=== PATIENT | male | born 1965 | race Caucasian/White ===

== ENCOUNTER 2019-06-07 06:32 | Inpatient (IN) | payer MEDICARE, MEDICAID ==
[~2019-06-07] VITALS: Ht 157.5 cm; Wt 66.7 kg
[~2019-06-07 06:32] MED LIST: ATOR10TA69 PO; FOLI-43 PO; HYDR200T35 PO; LOSA25TA26 PO; METH2.5T PO; PRED5TAB PO
[2019-06-07 07:22] LABS: EOSINOPHILS % 3.2 % (0.0-5.0); HEMATOCRIT. 39.7 % (42.0-52.0); HEMOGLOBIN. 12.9 g/dL (14.0-18.0); LYMPHOCYTES % 25.7 % (20.0-50.0); MEAN CORPUSCULAR HEMOGLOBIN 26.9 pg (28.0-32.0); MEAN CORPUSCULAR VOLUME 82.5 fL (80.0-94.0); MEAN PLATELET VOLUME 7.7 fl (7.4-10.4); MONOCYTES % 7.6 % (2.0-8.0); NEUTROPHILS % 62.5 % (40.0-76.0); PLATELET 448 x1000/uL (130-400); RED BLOOD CELL COUNT 4.81 mill/uL (4.7-6.1); RED CELL DISTRIBUTION WIDTH 15.8 % (11.6-14.6)
[2019-06-07] MEDS ORDERED: LACTATED RINGERS 1,000 ML IV SCH (07:30)
[2019-06-07 07:41] LABS: CLARITY URINE CLEAR (CLEAR); COLOR URINE YELLOW (YELLOW); KETONES URINE NEGATIVE (NEGATIVE); LEUKOCYTE ESTERASE URINE NEGATIVE (NEGATIVE); NITRITE URINE NEGATIVE (NEGATIVE); OCCULT BLOOD URINE NEGATIVE (NEGATIVE); PROTEIN URINE NEGATIVE (NEGATIVE); SPECIFIC GRAVITY URINE 1.017 (1.005-1.030); UROBILINOGEN URINE 0.2 E.U./dL (0.2-1.0)
[2019-06-07 07:46] LABS: PARTIAL THROMBOPLASTIN TIME 30.3 sec (23.4-31.0); PROTHROMBIN TIME 10.5 sec (9.6-11.0)
[2019-06-07 07:56] LABS: CHLORIDE 107 mEq/L (98-107)
[2019-06-07] MEDS ORDERED: IBUP-2030 PO (09:26)
[2019-06-07] MEDS ORDERED: ROPIVACAINE HCL 10MG/ML 20 ML VIAL EPI ONE (09:45)
[2019-06-07] MEDS ORDERED: BUPIVACAINE HCL/DEXTROSE/PF 0.75% 2ML AMP INJ ONE (09:45)
[2019-06-07] MEDS ORDERED: ALBUMIN HUMAN 12.5G/250ML (5%) IV ONE (09:46)
[2019-06-07] MEDS ORDERED: MORPHINE SULFATE/PF 1MG/ML 10ML AMP ONE (09:51)
[2019-06-07] MEDS ORDERED: SKIN ADHESIVE 0.7 GM EA TOP ONE (09:51)
[2019-06-07] MEDS ORDERED: BACITRACIN 50,000 UNITS/VIAL ONE ×2 (09:52→10:10)
[2019-06-07] MEDS ORDERED: BUPIVACAINE HCL/PF 0.25% (2.5MG/ML) 10ML ONE (09:55)
[2019-06-07] MEDS ORDERED: NEOSTIGMINE METHYLSULFATE 1MG/ML 10 ML VIAL ONE (09:57)
[2019-06-07] MEDS ORDERED: EPHEDRINE SULFATE 50MG/ML VIAL ONE (09:57)
[2019-06-07] MEDS ORDERED: EPINEPHRINE 1:1000 1 MG/ML AMP ONE ×2 (09:57→10:09)
[2019-06-07] MEDS ORDERED: ROCURONIUM BROMIDE 10MG/ML VIAL 5ML IV ONE ×4 (09:57→14:18)
[2019-06-07] MEDS ORDERED: GLYCOPYRROLATE 0.2 MG/ML 2ML VIAL ONE (09:57)
[2019-06-07] MEDS ORDERED: CEFAZOLIN SODIUM 1000MG/VIAL ONE (09:57)
[2019-06-07] MEDS ORDERED: MIDAZOLAM HCL 2 MG/2 ML VIAL ONE (09:57)
[2019-06-07] MEDS ORDERED: ONDANSETRON HCL 4MG/2ML INJ ONE (09:57)
[2019-06-07] MEDS ORDERED: FENTANYL CITRATE/PF 50MCG/ML 2ML VIAL ONE ×3 (09:57→16:09)
[2019-06-07] MEDS ORDERED: SODIUM CHLORIDE 0.9% 10ML VIAL ONE (09:57)
[2019-06-07] MEDS ORDERED: LIDOCAINE HCL/PF 1% 10 MG/ML 5ML VIAL ONE (09:57)
[2019-06-07] MEDS ORDERED: DEXAMETHASONE 4MG/ML 1ML VIAL ONE (09:57)
[2019-06-07] MEDS ORDERED: METOCLOPRAMIDE HCL 10MG/2ML VIAL ONE (09:57)
[2019-06-07] MEDS ORDERED: PHENYLEPHRINE HCL 10 MG/ML 1ML (IV VIAL) IV ONE (09:57)
[2019-06-07] MEDS ORDERED: SUCCINYLCHOLINE CHLORIDE 200MG/10ML IV ONE (09:57)
[2019-06-07] MEDS ORDERED: PROPOFOL 200MG/20ML VIAL IV ONE (09:57)
[2019-06-07] MEDS ORDERED: TRANEXAMIC ACID 1,000 MG in SODIUM CHLORIDE 0.9% 100 ML IV NR ×2 (10:00→11:00)
[2019-06-07] MEDS ORDERED: TRANEXAMIC ACID 1,000 MG/10 ML IV STA (10:00)
[2019-06-07] MEDS ORDERED: VANCOMYCIN HCL 1 GM/VIAL ONE (10:09)
[2019-06-07] MEDS ORDERED: GENTAMICIN SULF 40MG/ML 2ML VIAL ONE (10:09)
[2019-06-07] MEDS ORDERED: METHYLENE BLUE 50 MG/10 ML AMP IV ONE (10:10)
[2019-06-07] MEDS ORDERED: VANCOMYCIN HCL 500 MG/VIAL ONE (11:11)
[2019-06-07] MEDS ORDERED: VECURONIUM BROMIDE 10 MG/VIAL IV ONE (16:55)
[2019-06-07] MEDS ORDERED: HYDROMORPHONE HCL/PF 2MG/ML (OR) ONE (17:20)
[2019-06-07] MEDS ORDERED: LABETALOL 5MG/ML SYR 20 MG/4 ML SYRINGE IV PRN (19:00)
[2019-06-07] MEDS ORDERED: HYDROMORPHONE HCL/PF 2MG/ML CPJ IV PRN (19:00)
[2019-06-07] MEDS ORDERED: MEPERIDINE HCL/PF 25MG/ML CPJ IV PRN (19:00)
[2019-06-07] MEDS ORDERED: ONDANSETRON HCL 4MG/2ML INJ IV PRN ×2 (19:00→20:00)
[2019-06-07] MEDS ORDERED: NALOXONE HCL 0.4 MG/ML 1ML VIAL ONE (19:05)
[2019-06-07] MEDS ORDERED: ACETAMINOPHEN 325MG TABLET PO PRN (20:00)
[2019-06-07] MEDS ORDERED: HYDROCODONE/ACETAMINOPHEN 10/325MG TABLET PO PRN (20:00)
[2019-06-07] MEDS ORDERED: MAGNESIUM HYDROXIDE 400MG/5ML 30ML UDC PO PRN (20:00)
[2019-06-07] MEDS ORDERED: ZOLPIDEM TARTRATE 5MG TABLET PO PRN (20:00)
[2019-06-07] MEDS ORDERED: HYDROMORPHONE PCA 50 ML IV ONE (20:23)
[2019-06-07] MEDS ORDERED: ONDANSETRON INJ IV PRN (20:30)
[2019-06-07] MEDS ORDERED: HYDROMORPHONE PCA 10MG/50ML IV PRN (20:30)
[2019-06-07] MEDS ORDERED: DIPHENHYDRAMINE INJ IV PRN (20:30)
[2019-06-07] MEDS ORDERED: NALOXONE INJ IV PRN (20:30)
[2019-06-07 21:30] VITALS: BP 98/60
[2019-06-08] MEDS: CEFAZOLIN 2,000 MG in DEXT 5% WATER 100 ML IV SCH ×2 (01:14→08:21)
[2019-06-08 04:00] VITALS: BP 107/70
[2019-06-08 07:05] LABS: BASOPHILS % 0.4 % (0.0-2.0); EOSINOPHILS % 0.2 % (0.0-5.0); HEMATOCRIT. 25.3 % (42.0-52.0); HEMOGLOBIN. 8.4 g/dL (14.0-18.0); LYMPHOCYTES % 23.8 % (20.0-50.0); MEAN CORPUSCULAR HEMOGLOBIN 27.5 pg (28.0-32.0); MEAN PLATELET VOLUME 7.8 fl (7.4-10.4); MONOCYTES % 9.1 % (2.0-8.0); NEUTROPHILS % 66.5 % (40.0-76.0); PLATELET 317 x1000/uL (130-400); RED BLOOD CELL COUNT 3.05 mill/uL (4.7-6.1); RED CELL DISTRIBUTION WIDTH 15.5 % (11.6-14.6)
[2019-06-08 08:00] VITALS: BP 98/64
[2019-06-08 08:09] LABS: CHLORIDE 108 mEq/L (98-107)
[2019-06-08] MEDS: DOCUSATE SODIUM 100MG CAPSULE PO SCH ×2 (08:20→17:47)
[2019-06-08 12:00] VITALS: BP 112/69
[2019-06-08 16:00] VITALS: BP 111/62
[2019-06-08 20:00] VITALS: BP 140/82
[2019-06-08] MEDS: ENOXAPARIN 40MG/0.4ML SYR SUBCUT SCH (21:27)
[2019-06-09] VITALS: BP 122/79
[2019-06-09] MEDS: ACETAMINOPHEN 325MG TABLET PO PRN ×2 (00:24→05:02)
[2019-06-09 04:00] VITALS: BP 120/80
[2019-06-09 07:10] LABS: BASOPHILS % 0.2 % (0.0-2.0); EOSINOPHILS % 0.3 % (0.0-5.0); HEMATOCRIT. 25.6 % (42.0-52.0); HEMOGLOBIN. 8.4 g/dL (14.0-18.0); LYMPHOCYTES % 13.4 % (20.0-50.0); MEAN CORPUSCULAR HEMOGLOBIN 26.9 pg (28.0-32.0); MEAN CORPUSCULAR VOLUME 81.8 fL (80.0-94.0); MEAN PLATELET VOLUME 8.3 fl (7.4-10.4); MONOCYTES % 9.2 % (2.0-8.0); NEUTROPHILS % 76.9 % (40.0-76.0); PLATELET 297 x1000/uL (130-400); RED BLOOD CELL COUNT 3.13 mill/uL (4.7-6.1); RED CELL DISTRIBUTION WIDTH 15.3 % (11.6-14.6)
[2019-06-09 07:18] LABS: CHLORIDE 99 mEq/L (98-107)
[2019-06-09 07:42] LABS: TOTAL IRON BINDING CAPACITY 296 ug/dL (250-450)
[2019-06-09 08:00] VITALS: BP 118/79
[2019-06-09] MEDS: DOCUSATE SODIUM 100MG CAPSULE PO SCH ×2 (08:31→17:16)
[2019-06-09 12:00] VITALS: BP 104/65
[2019-06-09] MEDS: POTASSIUM CHLORIDE 10MEQ TABLET SR PO SCH ×2 (14:30→17:16)
[2019-06-09] MEDS: FERROUS SULFATE 325MG TABLET PO SCH ×2 (14:30→17:16)
[2019-06-09 16:00] VITALS: BP 110/71
[2019-06-09 20:00] VITALS: BP 127/68
[2019-06-09] MEDS: ASCORBIC ACID 500 MG TABLET PO SCH (21:19)
[2019-06-09] MEDS: ENOXAPARIN 40MG/0.4ML SYR SUBCUT SCH (21:20)
[2019-06-09] MEDS: HYDROCODONE/ACETAMINOPHEN 10/325MG TABLET PO PRN (21:25)
[2019-06-10] VITALS (7 sets, daily range): BP systolic 98–121; BP diastolic 55–72
[2019-06-10 07:05] LABS: CHLORIDE 106 mEq/L (98-107)
[2019-06-10 07:10] LABS: BASOPHILS % 0.2 % (0.0-2.0); EOSINOPHILS % 1.2 % (0.0-5.0); HEMATOCRIT. 25.7 % (42.0-52.0); HEMOGLOBIN. 8.5 g/dL (14.0-18.0); LYMPHOCYTES % 20.2 % (20.0-50.0); MEAN CORPUSCULAR HEMOGLOBIN 27.1 pg (28.0-32.0); MEAN CORPUSCULAR VOLUME 82.5 fL (80.0-94.0); MONOCYTES % 10.5 % (2.0-8.0); NEUTROPHILS % 67.9 % (40.0-76.0); PLATELET 302 x1000/uL (130-400); RED BLOOD CELL COUNT 3.12 mill/uL (4.7-6.1); RED CELL DISTRIBUTION WIDTH 15.1 % (11.6-14.6)
[2019-06-10] MEDS: FERROUS SULFATE 325MG TABLET PO SCH ×3 (08:27→17:42)
[2019-06-10] MEDS: POTASSIUM CHLORIDE 10MEQ TABLET SR PO SCH ×2 (08:27→17:43)
[2019-06-10] MEDS: ASCORBIC ACID 500 MG TABLET PO SCH ×2 (08:27→20:03)
[2019-06-10] MEDS: DOCUSATE SODIUM 100MG CAPSULE PO SCH ×2 (08:27→17:42)
[2019-06-10] MEDS: PREDNISONE 5MG TABLET PO SCH (15:33)
[2019-06-10] MEDS: HYDROXYCHLOROQUINE SULFATE 200MG TABLET PO SCH (17:42)
[2019-06-10] MEDS: DICLOFENAC SODIUM 75MG DR (EC) TABLET PO SCH (20:02)
[2019-06-10] MEDS: HYDROCODONE/ACETAMINOPHEN 10/325MG TABLET PO PRN (20:03)
[2019-06-10] MEDS: ENOXAPARIN 40MG/0.4ML SYR SUBCUT SCH (20:03)
[2019-06-10] MEDS ORDERED: ATORVASTATIN CALCIUM 10MG TABLET PO SCH (21:00)
[2019-06-11] VITALS (8 sets, daily range): BP systolic 94–108; BP diastolic 57–67
[2019-06-11 05:32] LABS: CLARITY URINE CLEAR (CLEAR); COLOR URINE YELLOW (YELLOW); KETONES URINE NEGATIVE (NEGATIVE); LEUKOCYTE ESTERASE URINE NEGATIVE (NEGATIVE); NITRITE URINE NEGATIVE (NEGATIVE); OCCULT BLOOD URINE NEGATIVE (NEGATIVE); PROTEIN URINE NEGATIVE (NEGATIVE); SPECIFIC GRAVITY URINE 1.008 (1.005-1.030); UROBILINOGEN URINE 0.2 E.U./dL (0.2-1.0)
[2019-06-11 08:05] LABS: BASOPHILS % 0.3 % (0.0-2.0); EOSINOPHILS % 1.8 % (0.0-5.0); HEMATOCRIT. 25.2 % (42.0-52.0); HEMOGLOBIN. 8.5 g/dL (14.0-18.0); LYMPHOCYTES % 25.3 % (20.0-50.0); MEAN CORPUSCULAR HEMOGLOBIN 27.8 pg (28.0-32.0); MEAN CORPUSCULAR VOLUME 82.1 fL (80.0-94.0); MONOCYTES % 9.3 % (2.0-8.0); NEUTROPHILS % 63.3 % (40.0-76.0); PLATELET 367 x1000/uL (130-400); RED BLOOD CELL COUNT 3.07 mill/uL (4.7-6.1); RED CELL DISTRIBUTION WIDTH 15.5 % (11.6-14.6)
[2019-06-11 08:17] LABS: CHLORIDE 105 mEq/L (98-107)
[2019-06-11] MEDS: FERROUS SULFATE 325MG TABLET PO SCH ×2 (08:34→12:33)
[2019-06-11] MEDS: DICLOFENAC SODIUM 75MG DR (EC) TABLET PO SCH (08:35)
[2019-06-11] MEDS: DOCUSATE SODIUM 100MG CAPSULE PO SCH (08:35)
[2019-06-11] MEDS: ASCORBIC ACID 500 MG TABLET PO SCH (08:40)
[2019-06-11] MEDS: POTASSIUM CHLORIDE 10MEQ TABLET SR PO SCH (08:40)
[2019-06-11] MEDS: HYDROXYCHLOROQUINE SULFATE 200MG TABLET PO SCH (08:41)
[2019-06-11] MEDS: PREDNISONE 5MG TABLET PO SCH (09:05)
== END 2019-06-11 16:25 | disposition home health service (06) | DRG 470 ==
LOC: OR 06:32 → 6EST 19:00
PROVIDERS: ADMIT Orthopaedic Surgery; ATTEND Internal Medicine Rheumatology
PROC: 0SRD0J9 Replacement of Left Knee Joint with Synthetic Substitute, Cemented, Open Approach (ICD-10-PCS; principal; 2019-06-07)
PROC: 0QSC04Z Reposition Left Lower Femur with Internal Fixation Device, Open Approach (ICD-10-PCS; 2019-06-07)
DX: M97.12XA Periprosthetic fracture around internal prosthetic left knee joint, initial encounter (principal); E46 Unspecified protein-calorie malnutrition; M31.30 Wegener's granulomatosis without renal involvement; E87.1 Hypo-osmolality and hyponatremia; M17.0 Bilateral primary osteoarthritis of knee; E87.6 Hypokalemia; I77.6 Arteritis, unspecified; J44.9 Chronic obstructive pulmonary disease, unspecified; M06.9 Rheumatoid arthritis, unspecified; G89.29 Other chronic pain; F17.210 Nicotine dependence, cigarettes, uncomplicated; I95.9 Hypotension, unspecified; Z99.3 Dependence on wheelchair; Z56.0 Unemployment, unspecified; Z83.3 Family history of diabetes mellitus; Z79.1 Long term (current) use of non-steroidal anti-inflammatories (NSAID); Z79.899 Other long term (current) drug therapy; Z68.26 Body mass index [BMI] 26.0-26.9, adult; D64.9 Anemia, unspecified
CPT/HCPCS: 36415; 73560; 80048; 80053; 81003; 82270; 83540; 83550; 83735; 85025; 85044; 86850; 86900; 88305; 88311; 93005; 97116; 97162; 97166; 97530; 97535; C1713; C1776; J0330; J0690; J1100; J1170; J1580; J1650; J2250; J2274; J2310; J2370; J2405; J2704; J2710; J2765; J2795; J3010; J3370; J3490; J7050; J7060; J7512; L1830; P9041; Q9968